=== PATIENT | female | born 1985 | race Asian ===

== ENCOUNTER 2019-07-10 15:11 | Observation (INO) | payer OTHER ==
[~2019-07-10] VITALS: Ht 157.5 cm; Wt 72.6 kg
== END 2019-07-10 16:55 | disposition home or self-care (01) ==
LOC: SPU 15:11
PROVIDERS: ADMIT Obstetrics & Gynecology; ATTEND Obstetrics & Gynecology
DX: O24.419 Gestational diabetes mellitus in pregnancy, unspecified control (principal); Z3A.33 33 weeks gestation of pregnancy
CPT/HCPCS: 59025; G0378

== ENCOUNTER 2019-08-14 11:05 | Inpatient (IN) | payer OTHER ==
[~2019-08-14] VITALS: Ht 157.5 cm; Wt 75.7 kg
[2019-08-14] MEDS: LR 1,000 ML IV SCH ×2 (11:20→21:30)
[2019-08-14] MEDS ORDERED: OXYTOCIN/0.9 % SODIUM CHLORIDE 1,000 ML IV SCH ×2 (11:20→23:04)
[2019-08-14] MEDS ORDERED: NALBUPHINE HCL 10 MG/ML AMP IVP PRN (11:30)
[2019-08-14 12:01] LABS: BASOPHILS % (AUTO) 0.5 % (0.0-2.0); EOSINOPHILS # (AUTO) 0.1 K/uL (0.0-0.4); EOSINOPHILS % (AUTO) 0.8 % (0.0-4.0); HEMATOCRIT 36.4 % (36-48); HEMOGLOBIN 12.4 g/dL (12.0-16.0); LYMPHOCYTES # (AUTO) 1.1 K/uL (1.0-5.5); LYMPHOCYTES % (AUTO) 11.9 % (20.5-51.5); MEAN CORPUSCULAR HEMOGLOBIN 32 pg (27-31); MEAN CORPUSCULAR HGB CONC 34 % (32-36); MEAN CORPUSCULAR VOLUME 95 fL (79.0-98.0); MONOCYTES # (AUTO) 0.6 K/uL (0.0-1.0); MONOCYTES % (AUTO) 7.1 % (1.7-9.3); NEUTROPHILS # (AUTO) 7.1 K/uL (1.8-7.7); NEUTROPHILS % (AUTO) 79.7 % (40.0-70.0); PLATELET COUNT (AUTO) 146 K/uL (130-430); RED BLOOD CELL COUNT(AUTO) 3.82 MIL/uL (4.2-6.2); RED CELL DISTRIBUTION WIDTH 14.6 % (9.0-15.0); WHITE BLOOD COUNT (AUTO) 8.9 K/uL (4.8-10.8)
[2019-08-14 13:54] VITALS: BP_SYST 135
[2019-08-14] MEDS ORDERED: FLU VACC QS2019-20 36MOS UP/PF 60 MCG/0.5 ML SYRINGE I.M. PRN (14:00)
[2019-08-14] MEDS ORDERED: ROPIVACAINE HCL/PF 0.2% 200 ML ONE (14:40)
[2019-08-14] MEDS ORDERED: fentaNYL CITRATE/PF 100 MCG/2 ML AMP ONE (14:40)
[2019-08-14] MEDS ORDERED: ONDANSETRON HCL 4 MG/2 ML VIAL IVP PRN (15:30)
[2019-08-14] MEDS ORDERED: FENT2mCg/mL-ROPIVA0.2%/NS EPID 200 ML EP SCH (15:30)
[2019-08-14] MEDS ORDERED: DIPHENHYDRAMINE INJ 50 MG/ML VIAL IVP PRN (15:30)
[2019-08-14] MEDS ORDERED: OXYTOCIN/0.9 % SODIUM CHLORIDE 1,000 ML IV ONE (23:04)
[2019-08-14] MEDS ORDERED: LANOLIN 7 GM OINT. TP PRN (23:15)
[2019-08-14] MEDS ORDERED: DERMOPLAST SPRAY TP PRN (23:15)
[2019-08-14] MEDS ORDERED: WITCH HAZEL LEAF 1 MED.PAD MED.PAD TP PRN (23:15)
[2019-08-14] MEDS ORDERED: HYDROcodone/ACETAMIN 5-325 MG TAB (NORCO/ VICODIN) PO PRN ×2 (23:15)
[2019-08-14] MEDS ORDERED: MEASLES,MUMPS&RUBELLA VACC/PF 12500 UNIT/0.5 ML VIAL SUBQ PRN (23:15)
[2019-08-14] MEDS ORDERED: RHO(D) IMMUNE GLOBULIN/MALTOSE 1500 UNITS/1.3 ML (WINHRO) IM PRN (23:15)
[2019-08-14] MEDS ORDERED: ANUSOL 1 EA SUPP.RECT (PREPARATION H) RC PRN (23:15)
[2019-08-14] MEDS ORDERED: ACETAMINOPHEN 325 MG TABLET PO PRN (23:15)
[2019-08-14] MEDS ORDERED: METHYLERGONOVINE MALEATE 0.2 MG TABLET PO PRN (23:15)
[2019-08-14] MEDS ORDERED: SENNOSIDES/DOCUSATE SODIUM 1 TAB TABLET(SENOKOT-S) PO PRN (23:15)
[2019-08-14] MEDS ORDERED: TEMAZEPAM 15 MG CAPSULE PO PRN (23:15)
[2019-08-14] MEDS ORDERED: HYDROCORTISONE 0.5%, 28.35 GM TOPICAL CREAM TP PRN (23:15)
[2019-08-15] MEDS: IBUPROFEN 600 MG TABLET PO SCH ×4 (00:47→17:50)
[2019-08-15] MEDS: DOCUSATE SODIUM 100 MG CAPSULE PO PRN (06:06)
[2019-08-15 08:50] LABS: HEMATOCRIT 27.3 % (36-48); HEMOGLOBIN 9.2 g/dL (12.0-16.0)
[2019-08-15] MEDS: FERROUS SULFATE 325 MG TABLET.DR PO SCH ×2 (09:30→15:35)
[2019-08-16] MEDS: IBUPROFEN 600 MG TABLET PO SCH ×2 (00:07→06:22)
[2019-08-16] MEDS: DOCUSATE SODIUM 100 MG CAPSULE PO PRN (09:56)
== END 2019-08-16 10:00 | disposition home or self-care (01) | DRG 807 ==
LOC: SPU 11:05
PROVIDERS: ADMIT Obstetrics & Gynecology; ATTEND Obstetrics & Gynecology
PROC: 10D07Z6 Extraction of Products of Conception, Vacuum, Via Natural or Artificial Opening (ICD-10-PCS; principal; 2019-08-14)
PROC: 0KQM0ZZ Repair Perineum Muscle, Open Approach (ICD-10-PCS; 2019-08-14)
PROC: 3E0R3BZ Introduction of Anesthetic Agent into Spinal Canal, Percutaneous Approach (ICD-10-PCS; 2019-08-14)
PROC: 3E0R33Z Introduction of Anti-inflammatory into Spinal Canal, Percutaneous Approach (ICD-10-PCS; 2019-08-14)
PROC: 3E033VJ Introduction of Other Hormone into Peripheral Vein, Percutaneous Approach (ICD-10-PCS; 2019-08-14)
DX: O70.1 Second degree perineal laceration during delivery (principal); Z37.0 Single live birth; Z68.38 Body mass index [BMI] 38.0-38.9, adult
CPT/HCPCS: 36415; 81002-TC; 82947-TC; 85018-TC; 85025; 86592; 86886; 86900; 86901; J2590; J3010; J7120